=== PATIENT | female | born 1955 | race Caucasian/White ===

== ENCOUNTER 2016-10-16 12:51 | Emergency (ER) | END 2016-10-16 16:10 | disposition home or self-care (01) ==

== ENCOUNTER 2017-05-11 10:06 | Emergency (ER) | payer BC ==
[2017-05-11 10:17] VITALS: BP 155/85
[2017-05-11] MEDS ORDERED: DEXAMETHASONE 10 MG/ML VIAL PO STA (10:41)
[2017-05-11] MEDS ORDERED: IBUPROFEN 600 MG TABLET PO STA (10:41)
[2017-05-11] MEDS ORDERED: ACETAMINOPHEN 325 MG TABLET PO STA (10:41)
[2017-05-11] MEDS ORDERED: DEXAMETHASONE 10 MG/ML VIAL ONE (10:50)
[2017-05-11] MEDS ORDERED: ACETAMINOPHEN 325 MG TABLET PO ONE (10:50)
--- NOTE | 2017-05-11 10:50 | ED Physician Documentation ---
PD HPI UPPER EXT INJURY - Stated complaint Stated Complaint: BACK PX/L ARM PX - Chief complaint Chief Complaint: Back Pain - History obtained from History obtained from: Patient - History of Present Illness Location: Left, Shoulder (and scapular area) Type of injury: No: Fall, Twist (she was doing repetitive motion of the arms with lifting and tool work. Had onset of pain after and got worse. Seen by PMD and had some trigger point injections yesterday but hurting as much again today. ), Blunt / blow Timing - onset: How many days ago (2-3) Timing - duration: Days Timing - details: Gradual onset, Still present Improved by: Rest Worsened by: Moving Associated symptoms: No: Weakness, Numbness, Swelling Similar symptoms before: Has not had sx before Recently seen: Clinic (yesterday) Review of Systems Constitutional: denies: Fever, Chills Skin: denies: Rash, Lesions Neurologic: denies: Focal weakness, Numbness PD PAST MEDICAL HISTORY - Past Medical History Cardiovascular: None Respiratory: None Neuro: Headache/migraine - Past Surgical History Past Surgical History: No - Present Medications Home Medications: Ambulatory Orders Medication Instructions Recorded Confirmed HYDROcod/ACETAM 5/325 [[place] 5/325] 1 tab PO Q6H PRN #20 tablet 05/11/17 Methocarbamol [Robaxin] 500 mg PO Q6H PRN #25 tablet 05/11/17 Naproxen 375 mg PO BID #20 tablet 05/11/17 - Allergies Allergies/Adverse Reactions: Allergies Allergy/AdvReac Type Severity Reaction Status Date / Time No Known Drug Allergies Allergy Verified 10/16/16 16:08 - Social History Does the pt smoke?: No Smoking Status: Never smoker Does the pt drink ETOH?: Yes Does the pt have substance abuse?: Yes PD ED PE NORMAL - Vitals Vital signs reviewed: Yes - General General: Alert and oriented X 3, Well developed/nourished, Other (appears uncomfortable and guarding motion of the left arm; has sling on from PMD. ) - Neck Neck: Supple, no meningeal sign, No bony TTP - Derm Derm: Normal color, Warm and dry, No rash - Extremities Extremities: Other (left suprascapular area tender in muscles, worse with ROM of the shoulder. ) - Neuro Neuro: No motor deficit, No sensory deficit Results - Vitals Vitals: Vital Signs - 24 hr 05/11/17 10:10 Temperature 36.6 C Heart Rate 86 Respiratory 20 Rate Blood Pressure 155/85 H O2 Saturation 98 Oxygen O2 Source Room air PD MEDICAL DECISION MAKING - ED course Complexity details: considered differential (no abrupt injury nor direct impact. Pain in suprascapular area mostly, but hurts with ROM of the shoulder suggesting rotator cuff muscles. ), d/w patient Departure - Departure Disposition: 01 Home, Self Care Clinical Impression: Rotator cuff tendonitis Qualifiers: Laterality: left Qualified Code(s): M75.82 - Other shoulder lesions, left shoulder Condition: Stable Record reviewed to determine appropriate education?: Yes Instructions: ED Tendinitis Rotator Cuff Prescriptions: Naproxen 375 mg PO BID #20 tablet HYDROcod/ACETAM 5/325 [[place] 5/325] 1 tab PO Q6H PRN #20 tablet PRN Reason: Pain Methocarbamol [Robaxin] 500 mg PO Q6H PRN #25 tablet PRN Reason: Spasms Comments: The rotator cuff/shoulder muscles originate in the scapular area. It does sound like you irritated the muscle and tendons with the activity as you have suggested. Less use of the shoulder while it is healing. You can use a sling periodically but do range of motion of the shoulder so does not stiffen up. Use naproxen twice daily for 7-10 days. Add Robaxin if needed for muscle spasms and stiffness. Tylenol or hydrocodone if needed for pain. Follow-up with your primary care if not better over the next several days to week. Discharge Date/Time: 05/11/17 11:12
[2017-05-11] MEDS ORDERED: CHERRY SYRUP 10 ML UDC PO ONE (10:51)
[2017-05-11] MEDS ORDERED: IBUPROFEN 600 MG TABLET PO ONE (10:51)
== END 2017-05-11 11:12 | disposition home or self-care (01) ==
LOC: ED 10:06
DX: M75.102 Unspecified rotator cuff tear or rupture of left shoulder, not specified as traumatic (principal); X50.3XXA Overexertion from repetitive movements, initial encounter
CPT/HCPCS: 99281; 99283; A9270

== ENCOUNTER 2019-09-11 15:16 | Emergency (ER) | payer BC ==
[2019-09-11 15:28] VITALS: BP 145/77
--- NOTE | 2019-09-11 15:40 | ED Physician Documentation ---
PD HPI NECK PAIN - Stated complaint Stated Complaint: NECK PX - Chief complaint Chief Complaint: Back Pain - History obtained from History obtained from: Patient - History of Present Illness Timing - onset: Today (awoke with neck pain and stiffness this morning, and has gotten worse with spasm through the day. No noted injury. Had similar about 2 months ago, Rx with muscle relaxant, NSAIDs and mostly PT. Had similar about 2 months prior to that, with PT for that as well, and had improved both times.) Timing - details: Abrupt onset, Still present Location: Mid, Lower, Right Quality: Pain, Spasm Associated symptoms: No: Fever, Weakness, Numbness Similar symptoms before: Diagnosis (neck muscle spasms couple times in past few months, Rx with PT and antispasmodics and improved. Then recurs without injury.) Review of Systems Constitutional: denies: Fever, Chills Nose: denies: Rhinorrhea / runny nose, Congestion Throat: denies: Sore throat Respiratory: denies: Cough Neurologic: denies: Focal weakness, Numbness, Altered mental status, Headache PD PAST MEDICAL HISTORY - Past Medical History Cardiovascular: None Respiratory: None - Past Surgical History Past Surgical History: No - Present Medications Home Medications: Ambulatory Orders Medication Instructions Recorded Confirmed HYDROcod/ACETAM 5/325 [[place] 5/325] 1 tab PO Q6H PRN #20 tablet 05/11/17 Methocarbamol [Robaxin] 500 mg PO Q6H PRN #25 tablet 05/11/17 Naproxen 375 mg PO BID #20 tablet 05/11/17 Hydrocodone/Acetaminophen [[place] 1 each PO Q6H PRN #15 tablet 09/11/19 5-325 Tablet] Naproxen 375 mg PO BID #20 tablet 09/11/19 Tizanidine HCl 4 mg PO TID PRN #25 capsule 09/11/19 dexAMETHasone [Decadron] 4 mg PO DAILY #7 tablet 09/11/19 - Allergies Allergies/Adverse Reactions: Allergies Allergy/AdvReac Type Severity Reaction Status Date / Time No Known Drug Allergies Allergy Verified 09/11/19 15:28 - Social History Does the pt smoke?: No Smoking Status: Never smoker Does the pt drink ETOH?: Yes Does the pt have substance abuse?: Yes PD ED PE NORMAL - Vitals Vital signs reviewed: Yes - General General: Alert and oriented X 3, Well developed/nourished, Other (appears uncomfortable with holding neck stiffly. Guarded ROM. ) - Neck Neck: No bony TTP, Other (tender right trapezius muscle line. No rash nor sores. Not tender for light touch. ) - Derm Derm: Normal color, Warm and dry - Neuro Neuro: Alert and oriented X 3, No motor deficit, No sensory deficit, Normal speech Results - Vitals Vitals: Vital Signs - 24 hr 09/11/19 15:23 Temperature 36.4 C L Heart Rate 84 Respiratory 19 Rate Blood Pressure 145/77 H O2 Saturation 100 Oxygen O2 Source Room air PD MEDICAL DECISION MAKING - ED course Complexity details: considered differential (seems muscular and has marked tenderness along trapezius line with several trigger points of tenderness. These I injected (4 spots) with Lidocaine with epi with considerable improvement in ROM of the neck. ), d/w patient Departure - Departure Disposition: 01 Home, Self Care Clinical Impression: Acute muscle stiffness of neck Condition: Stable Record reviewed to determine appropriate education?: Yes Instructions: ED Neck Back Pain General Follow-Up: Darwin Hanks ND [Primary Care Provider] - Prescriptions: dexAMETHasone [Decadron] 4 mg PO DAILY #7 tablet Hydrocodone/Acetaminophen [[place] 5-325 Tablet] 1 each PO Q6H PRN #15 tablet PRN Reason: Pain Naproxen 375 mg PO BID #20 tablet Tizanidine HCl 4 mg PO TID PRN #25 capsule PRN Reason: Spasms Comments: Heat and gentle stretching as you have done with therapy in the past. Use some anti-inflammatories such as naproxen twice daily with food for the next 7 to 10 days. Also add Decadron steroid anti-inflammatory daily for the next several days. You can use muscle relaxant tizanidine if needed for stiffness and spasm. Add Tylenol 500 to 650 mg 3 or 4 times a day or hydrocodone if needed for pains. Follow-up with your primary care regarding other potential treatments and perhaps physical therapy again. Discharge Date/Time: 09/11/19 17:06
[2019-09-11] MEDS ORDERED: KETOROLAC 30 MG/ML VIAL IM STA (15:59)
[2019-09-11] MEDS ORDERED: CHERRY SYRUP 10 ML UDC PO ONE (15:59)
[2019-09-11] MEDS ORDERED: diazePAM 5 MG TABLET PO STA (15:59)
[2019-09-11] MEDS ORDERED: HYDROcod/ACET 5/325 Prepack 4 PO STA (15:59)
[2019-09-11] MEDS ORDERED: DEXAMETHASONE 10 MG/ML VIAL PO STA (15:59)
[2019-09-11] MEDS ORDERED: HYDROcod/ACETAM 5/325 MG TABLET PO STA (15:59)
== END 2019-09-11 17:06 | disposition home or self-care (01) ==
LOC: ED 15:16
DX: M43.6 Torticollis (principal)
CPT/HCPCS: 96372; 99283; A9270

== ENCOUNTER 2020-04-11 14:33 | Outpatient (CLI) | payer BC ==
--- NOTE | 2020-04-11 14:35 | XRAY Report ---
PROCEDURE: Finger(s) RT INDICATIONS: RIGHT THUMB INJURY TECHNIQUE: AP hand, 3 views of the right thumb acquired. COMPARISON: None FINDINGS: Bones: No fractures or dislocations. No suspicious bony lesions. Degenerative change involving the first carpometacarpal, first MCP, and first IP joints. Soft tissues: No suspicious soft tissue calcifications. IMPRESSION: No evidence acute bony abnormality of the right thumb. Degenerative change. Reviewed by: Pb Collins MD on 04/11/2020 1:34 PM [facility] Approved by: Pb Collins MD on 04/11/2020 1:34 PM [facility] Station ID: [id number]
== END 2020-04-11 23:59 | disposition home or self-care (01) ==
LOC: DI.S 14:33
PROVIDERS: ATTEND Physician Assistant
DX: M18.11 Unilateral primary osteoarthritis of first carpometacarpal joint, right hand (principal)
CPT/HCPCS: 73140

== ENCOUNTER 2020-12-21 17:57 | Emergency (ER) | payer BC ==
[2020-12-21] MEDS ORDERED: oxyCODONE 5 MG TABLET PO STA (18:14)
[2020-12-21] MEDS ORDERED: diazePAM INJ 5 MG/ML SYRINGE IM STA (18:14)
--- NOTE | 2020-12-21 18:17 | ED Physician Documentation ---
History of Present Illness - Stated complaint Stated Complaint: BACK PX - Chief complaint Chief Complaint: Back Pain - Additonal information Additional information: 65-year-old female presents emergency department with acute back pain for about the last 24 hours. She reports that 2 to 3 days ago she was doing a lot of outdoor yard work including shoveling heavy gravel as well as lifting heavy boxes. She had some soreness but last night began to have some acute pain in the low back with what she feels are spasms that radiate across both sides. Denies any saddle anesthesia bowel or bladder incontinence. No fevers. No history of spinal surgery or instrumentation. She does have a history of low back pain. She reports that about 3 years ago she had an MRI of the lumbar spine completed through the [facility] and it did show lumbar disc herniation. Over the last 24 hours patient has taken naproxen 3 times without relief of pain. Review of Systems Constitutional: denies: Fever, Chills Eyes: reports: Reviewed and negative Ears: reports: Reviewed and negative Nose: denies: Rhinorrhea / runny nose, Congestion, Epistaxis, Sinus pressure / pain, Foreign Body, Reviewed and negative, Other Throat: reports: Reviewed and negative Cardiac: reports: Reviewed and negative Respiratory: reports: Reviewed and negative GI: reports: Reviewed and negative : denies: Dysuria, Frequency, Hesitancy, Unable to Void Skin: denies: Rash, Lesions Musculoskeletal: reports: Back pain. denies: Joint pain, Extremity swelling Neurologic: denies: Generalized weakness, Focal weakness, Numbness PD PAST MEDICAL HISTORY - Past Medical History Past Medical History: No Cardiovascular: None Respiratory: None - Past Surgical History Past Surgical History: Yes - Present Medications Home Medications: Ambulatory Orders Medication Instructions Recorded Confirmed Ibuprofen [Motrin] 600 mg PO Q6H PRN #30 tab 12/21/20 Methocarbamol [Robaxin-750] 750 mg PO TID PRN #30 tablet 12/21/20 Oxycodone HCl/Acetaminophen 1 - 2 each PO Q6H PRN #14 tablet 12/21/20 [Percocet 5-325 mg Tablet] - Allergies Allergies/Adverse Reactions: Allergies Allergy/AdvReac Type Severity Reaction Status Date / Time No Known Drug Allergies Allergy Verified 09/11/19 15:28 - Social History Does the pt smoke?: Yes Smoking Status: Current every day smoker Does the pt drink ETOH?: Yes Does the pt have substance abuse?: Yes Substance Use and Type: Marijuana - Immunizations Immunizations are current?: Yes - POLST Patient has POLST: No PD ED PE EXPANDED - General General: Alert, No acute distress, Well developed/nourished - Neck Neck: Supple w/out meningeal sx - Cardiac Cardiac: Regular Rate, Regular Rhythm, Radial strong equal, Pedal strong equal, Cap refill < 2 sec - Respiratory Respiratory: Clear to ausultation shaye. No: Distress, Labored - Back Back: Soft tissue tenderness (midline, though no spinous process tenderness that radiates arcoss the lower lumbar region. Motor strength 5/5 BLE. no parathesias. ). No: Vertebral tenderness, CVA TTP right, CVA TTP left - Extremities Extremities: Normal. No: Deformity, Tenderness, Pedal edema bilateral - Neuro Neuro: Alert and Oriented X 3, CNII-XII intact - GCS Eye Opening: Spontaneous Motor: Obeys Commands Verbal: Oriented Total: 15 Results - Vitals Vitals: Vital Signs - 24 hr 12/21/20 12/21/20 18:00 18:25 Temperature 36.5 C Heart Rate 80 81 Respiratory 16 18 Rate Blood Pressure 145/100 H 146/83 H O2 Saturation 96 100 Oxygen O2 Source Room air PD MEDICAL DECISION MAKING - ED course Complexity details: re-evaluated patient, considered differential, d/w patient ED course: 65-year-old female presents to the emergency department with mechanical low back pain after heavy lifting and shoveling this weekend. She does report a history of disc herniation in the lumbar spine. Clinically she has no red flags with the exception of her age. She did report that she felt a large amount of spasm in both sides of the lumbar spine. On presentation she was given 5 mg of oxycodone as well as 5 mg intramuscularly of Valium. On repeat evaluation she feels that her pain has nearly fully subsided she is able to sit up without assistance and walk in the room with only a mildly antalgic gait. I suspect that this is an acute on chronic presentation. Patient will be prescribed a limited amount of Percocet as well as a muscle relaxer. I will also recommend a short course of ibuprofen. Primary care is through the [facility] and I have advised that she follow-up within the next week. If symptoms not markedly better she may need repeat MRI or referral to back pain specialist/physiatry. Departure - Departure Disposition: 01 Home, Self Care Clinical Impression: Low back pain Qualifiers: Chronicity: unspecified Back pain laterality: bilateral Sciatica presence: without sciatica Qualified Code(s): M54.5 - Low back pain Condition: Stable Record reviewed to determine appropriate education?: Yes Instructions: ED Sprain Strain Lumbar, ED Spasm Back No Trauma Prescriptions: Ibuprofen [Motrin] 600 mg PO Q6H PRN #30 tab PRN Reason: Pain Oxycodone HCl/Acetaminophen [Percocet 5-325 mg Tablet] 1 - 2 each PO Q6H PRN #14 tablet PRN Reason: pain Methocarbamol [Robaxin-750] 750 mg PO TID PRN #30 tablet PRN Reason: Spasms Comments: You were seen in the emergency department for low back pain after heavy lifting and garden work this weekend. On exam he had a fair amount of spasm in the low back which is likely what caused your pain. We were able to get moderate pain control by using Valium as well as a small amount of Percocet. I would like you to take the muscle relaxer with food 2-3 times a day. Please be cautious it may make you dizzy unsafe to drive and prone to falls. For severe pain please use the Percocet. Please be careful with this medication it also makes you unsafe to drive and can cause constipation as well as being highly addictive. I would recommend a warm compress to help relax the muscles as well as ibuprofen. Please schedule follow-up with your primary care provider. If pain is not markedly better over the next 10 days to 2 weeks you may benefit from referral to physiatry and/or repeat MRI.
[2020-12-21 19:07] VITALS: BP 126/77
== END 2020-12-21 19:20 | disposition home or self-care (01) ==
LOC: ED 17:57
DX: M54.5 Low back pain (principal); G89.29 Other chronic pain; M62.830 Muscle spasm of back; X50.0XXA Overexertion from strenuous movement or load, initial encounter; Y93.H1 Activity, digging, shoveling and raking; Y92.007 Garden or yard of unspecified non-institutional (private) residence as the place of occurrence of the external cause; F17.200 Nicotine dependence, unspecified, uncomplicated
CPT/HCPCS: 96372; 99283; 99284; A9270